=== PATIENT | male | born 2000 | race African-American/Black ===

== ENCOUNTER 2019-06-02 18:33 | Emergency (ER) | payer MEDICAID ==
[~2019-06-02] VITALS: Ht 175.3 cm; Wt 83.9 kg
[2019-06-02] MEDS ORDERED: DexAMETHasone SOD PHOS 10MG/1ML VIAL INJ IM ONE (20:45)
[2019-06-02] MEDS ORDERED: ACETAMINOPHEN/CODEINE#3 (300/30mg) TAB PO ONE (20:45)
[2019-06-02] MEDS ORDERED: cefTRIAXone SOD 1,000 MG VL IM ONE (20:45)
[2019-06-02] MEDS ORDERED: LIDOCAINE 1% HCL (LOCAL ANESTH.) INJ 20ML MDV IJ ONE (21:30)
[2019-06-02 21:47] VITALS: BP 145/80
== END 2019-06-02 22:06 | disposition home or self-care (01) ==
LOC: ER 18:33
DX: J03.90 Acute tonsillitis, unspecified (principal)
CPT/HCPCS: 96372; 99283; J0696; J1100; J2001

== ENCOUNTER 2022-01-18 17:48 | Emergency (ER) | payer MEDICAID, OTHER ==
[~2022-01-18] VITALS: Ht 175.3 cm; Wt 81.6 kg
[2022-01-18 18:39] VITALS: BP 131/70
== END 2022-01-19 01:57 | disposition left against medical advice (07) ==
LOC: ER 17:48
DX: Z04.1 Encounter for examination and observation following transport accident (principal); Z53.21 Procedure and treatment not carried out due to patient leaving prior to being seen by health care provider